=== PATIENT | female | born 1970 | race Caucasian/White ===

== ENCOUNTER 2017-04-24 16:12 | Emergency (ER) | payer OTHER ==
--- NOTE | 2017-04-24 16:39 | ED Physician Documentation ---
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 She is visiting here from [place] on a business trip. Arrived about 5 days ago. Last night she developed redness, swelling, and pain in the anterior left riddle without fevers, chills, or difficulty weightbearing. There is no posterior calf pain, shortness of breath, or history of DVT or PE.) Review of Systems Constitutional: reports: Reviewed and negative Ears: denies: Loss of hearing, Ear pain Nose: denies: Rhinorrhea / runny nose, Congestion Throat: denies: Sore throat Cardiac: denies: Chest pain / pressure, Palpitations Respiratory: denies: Dyspnea PD PAST MEDICAL HISTORY - Past Medical History Past Medical History: Yes Endocrine/Autoimmune: HyPOthyroidism - Past Surgical History Past Surgical History: Yes Ortho: Knee replacement - Present Medications Home Medications: Ambulatory Orders Medication Instructions Recorded Confirmed Cephalexin [Keflex] 500 mg PO QID #40 capsule 04/24/17 Thyroid [[place] Thyroid] 60 mg PO DAILY 04/24/17 04/24/17 - Allergies Allergies/Adverse Reactions: Allergies Allergy/AdvReac Type Severity Reaction Status Date / Time No Known Drug Allergies Allergy Verified 04/24/17 16:20 - Social History Does the pt smoke?: Yes Smoking Status: Current every day smoker - Immunizations Immunizations are current?: Yes PD ED PE NORMAL - Vitals Vital signs reviewed: Yes - General General: Alert and oriented X 3, No acute distress - HEENT HEENT: PERRL, EOMI - Extremities Extremities: No edema, Other (Left calf is nontender, there is no edema. She does have warmth and redness of the anterior left riddle consistent with cellulitis. There is no palpable abscess or visible injury. Negative Homans sign.) - Neuro Neuro: Alert and oriented X 3, Normal speech - Psych Psych: Normal mood, Normal affect Results - Vitals Vitals: Vital Signs - 24 hr 04/24/17 16:21 Temperature 36.5 C Heart Rate 108 H Respiratory 16 Rate Blood Pressure 145/93 H O2 Saturation 97 Oxygen O2 Source Room air - Rads (name of study) LLE duplex Radiology: EMP read contemporaneously (no dvt) Departure - Departure Disposition: Home, Self Care Clinical Impression: Cellulitis of leg without foot, left Condition: Good Record reviewed to determine appropriate education?: Yes Instructions: Cellulitis Dc Prescriptions: Cephalexin [Keflex] 500 mg PO QID #40 capsule Comments: Call your doctor to arrange a follow-up appointment, make the next available appointment. In the interim, return anytime if worse or if new symptoms develop. Your blood pressure was elevated today on check into the emergency department. This does not mean that you have hypertension, it is a common phenomenon to come to the emergency department and have elevated blood pressure. I recommend that she see your primary care physician within the week to have it rechecked when you are feeling better.
[2017-04-24] MEDS ORDERED: CEPHALEXIN 250 MG CAPSULE PO STA (17:36)
--- NOTE | 2017-04-24 17:48 | Ultrasound Preliminary Report ---
Exam: US Duplex Ext Veins Left IMPRESSION: No evidence for deep venous thrombosis. [facility] SITE ID: [id number]
--- NOTE | 2017-04-24 17:50 | Ultrasound Report ---
EXAM: LEFT LOWER EXTREMITY VENOUS ULTRASOUND EXAM DATE: 04/24/2017 04:43 PM. CLINICAL HISTORY: Left leg pain COMPARISON: None. TECHNIQUE: Real-time sonographic vascular imaging was performed by the head athletic trainer/strength coach through the lower extremity utilizing both color-flow and Doppler spectral analysis. Multiple compliance representative static desiree ges were saved for review. FINDINGS: Common Femoral Vein (CFV): Normal. CFV-GSV Junction: Normal. Profunda Femoral Vein (PFV): Normal. Femoral Vein (FV) Prox: Normal. Femoral Vein (FV) Mid: Normal. Femoral Vein (FV) Dist: Normal. Popliteal Vein: Normal. Posterior Tibial Veins: Normal. Peroneal Veins: Normal. IMPRESSION: No evidence for deep venous thrombosis. [facility] Referring Provider Line: [phone] SITE ID: [id number]
[2017-04-24] MEDS ORDERED: CEPHALEXIN 250 MG CAPSULE PO ONE (17:51)
[2017-04-24 17:53] VITALS: BP 139/91
== END 2017-04-24 17:53 | disposition home or self-care (01) ==
LOC: ED 16:12
DX: L03.116 Cellulitis of left lower limb (principal); E06.3 Autoimmune thyroiditis; F17.200 Nicotine dependence, unspecified, uncomplicated; R03.0 Elevated blood-pressure reading, without diagnosis of hypertension; Z96.659 Presence of unspecified artificial knee joint
CPT/HCPCS: 93971; 99283; A9270